=== PATIENT | female | born 1995 | race Caucasian/White ===

== ENCOUNTER 2017-10-25 16:00 | Emergency (ER) | payer BC, SELFPAY ==
[2017-10-25] MEDS ORDERED: ONDANSETRON 4 MG/2 ML VIAL ONE (17:10)
[2017-10-25] MEDS ORDERED: MORPHINE 4 MG/ML SYR ONE (17:10)
[2017-10-25] MEDS ORDERED: NA CHLORIDE 0.9% 1,000 ML ONE (17:10)
[2017-10-25 17:22] LABS: Absolute Lymphocytes (CBC) 0.8 K/uL (0.7-4.9); Absolute Monocytes 0.7 K/uL (0.1-1.3); Absolute Neutrophil 12.6 K/uL (1.8-8.0); Basophils % 0.2 % (0-1.3); Hematocrit 41.8 % (36.0-45.0); Lymphocytes % 5.6 % (15.3-44.8); MCH 28.7 pg (27.0-35.0); MPV 9.3 fL (7.6-11.3); Monocytes % 5.2 % (3.3-12.3); RBC Red Blood Cell Count 4.86 M/uL (3.86-4.86)
[2017-10-25 17:32] LABS: Potassium 3.6 mEq/L (3.6-5.0)
[2017-10-25 17:39] LABS: Albumin 4.6 g/dL (3.2-5.5); Bilirubin Direct 0.2 mg/dL (0-0.2); Protein, Total 8.2 g/dL (6.0-8.3)
--- NOTE | 2017-10-25 17:46 | RAD REPORT ---
EXAM DESCRIPTION: US - Abdomen Exam Limited - 10/25/2017 5:39 pm CLINICAL HISTORY: Abdominal pain. COMPARISON: None. FINDINGS: The gallbladder demonstrates no gallstones. No pericholecystic fluid or gallbladder wall t hickening. The common bile duct is normal measuring 3 mm. The liver demonstrates no findings of intrahepatic biliary dilatation. IMPRESSION: Unremarkable examination.
[2017-10-25 17:57] LABS: Blood Morphology Comment NOT SEEN (NOT SEEN); Platelet Estimate ADEQ; Urine White Blood Cell Casts OK
[2017-10-25 18:08] LABS: Urine Bacteria NONE SEEN /HPF (<20); Urine RBC NONE SEEN /HPF (NONE SEEN)
[2017-10-25 18:09] LABS: Urine Culture Reflex Order NOT NEEDED
[2017-10-25 18:17] LABS: Urine Blood NEGATIVE (NEG); Urine Glucose NEGATIVE (NEG); Urine Protein NEGATIVE (NEG); Urine Specific Gravity 1.015 (1.005-1.030); Urine pH 8.5 (5.0-7.0)
--- NOTE | 2017-10-25 20:04 | RAD REPORT ---
EXAM DESCRIPTION: CTAbdomen Pelvis W Contrast - 10/25/2017 7:53 pm CLINICAL HISTORY: Abdominal pain. COMPARISON: 05/05/2017 TECHNIQUE: Biphasic CT imaging of the abdomen and pelvis was performed with 100 ml non-ionic IV cont rast. All CT scans are performed using dose optimization technique as appropriate and may include automated exposure control or mA/KV adjustment according to patient size. FINDINGS: The lung bases are clear. The liver, spleen, pancreas, adrenal glands and kidneys are within normal limits. No bowel obstruction, free air, free fluid or abscess. The appendix is not identified as a discrete structure, however, no secondary findings of appendicitis are identified. No evidence of significan t lymphadenopathy. Mild pelvic free fluid is present. Recent cyst rupture on the right is suspected. 4 cm left ovarian c yst is noted. Moderate fecal retention in the colon seen. IMPRESSION: Mild pelvic free fluid is seen with evidence of recent cyst rupture on the right. A 4 cm left ovarian cyst is noted. The appendix is not identified as a discrete structure, however, no secondary findings of appendicit is are identified.
[2017-10-25] MEDS ORDERED: KETOROLAC 30 MG/ML INJ ONE (21:05)
--- NOTE | 2017-10-25 21:05 | ER ---
Nurse's Notes [facility] Name: Leeanna Nunes Age: 21 yrs Sex: Female : 1995 Arrival Date: 10/25/2017 Time: 16:04 Bed 17 Private MD: Diagnosis: Other ovarian cysts-ruptured Presentation: 10/25 16:13 Presenting complaint: Patient states: Epigastric pain with nausea that started last aj night after eating Mac and cheese last night. Transition of care: patient was not received from another setting of care. Onset of symptoms was October 25, 2017. Initial Sepsis Screen: Does the patient meet any 2 criteria? No. Patient's initial sepsis screen is negative. Does the patient have a suspected source of infection? No. Patient's initial sepsis screen is negative. Care prior to arrival: None. 16:13 Method Of Arrival: Ambulatory 16:13 Acuity: CHRISTINE 3 aj Triage Assessment: 16:15 General: Appears in no apparent distress. comfortable, Behavior is calm, cooperative, aj appropriate for age. Pain: Complains of pain in epigastric area. Neuro: Level of Consciousness is awake, alert, obeys commands, Oriented to person, place, time, situation, Appropriate for age. Respiratory: Airway is patent Respiratory effort is even, unlabored, Respiratory pattern is regular, symmetrical. GI: Abdomen is flat, non-distended. GI: Reports diarrhea, nausea. Derm: Skin is intact, is healthy with good turgor, Skin is pink, warm \T\ dry. normal. 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 - Social history:: Smoking status: Patient/guardian denies using tobacco. Screenin:50 Abuse screen: Denies threats or abuse. Nutritional screening: No deficits noted. rb1 Tuberculosis screening: No symptoms or risk factors identified. Fall Risk None identified. Assessment: 16:50 General: Appears uncomfortable, slender, Behavior is calm, cooperative, Reports fever rb1 for. Pain: Complains of pain in abdomen Pain currently is 7 out of 10 on a pain scale. Pain began today around 1300. Neuro: Level of Consciousness is awake, alert, obeys commands, Oriented to person, place, time, situation. Cardiovascular: Capillary refill < 3 seconds is brisk in bilateral fingers. Respiratory: Airway is patent Respiratory effort is even, unlabored, Respiratory pattern is regular, symmetrical. GI: Bowel sounds present X 4 quads. Abd is soft Abdomen is tender to palpation X 4 quads. Reports diarrhea, nausea. : Reports pain with urination. Derm: Skin is pink, warm \T\ dry. Musculoskeletal: Range of motion: intact in all extremities. 17:20 Reassessment: Patient appears in no apparent distress at this time. Patient and/or rb1 family updated on plan of care and expected duration. Pain level reassessed. Patient is alert, oriented x 3, equal unlabored respirations, skin warm/dry/pink. 18:11 Reassessment: Patient appears in no apparent distress at this time. No changes from rb1 previously documented assessment. 18:23 Reassessment: Called CT to inform them that the pt. finished her contrast. rb1 19:46 Reassessment: Patient appears in no apparent distress at this time. Patient and/or aa1 family updated on plan of care and expected duration. Pain level reassessed. Patient is alert, oriented x 3, equal unlabored respirations, skin warm/dry/pink. Pt taken to CT. 21:26 Reassessment: Patient appears in no apparent distress at this time. Patient is alert, aa1 oriented x 3, equal unlabored respirations, skin warm/dry/pink. Discussed d/c \T\ f/u instructions with pt; denies questions or concerns at this time Patient states feeling better. Vital Signs: 16:15 BP 128 / 73; Pulse 88; Resp 20; Temp 100.4; Pulse Ox 100% on R/A; Weight 49.9 kg; aj Height 5 ft. 0 in. (152.40 cm); Pain 7/10; 17:00 Temp 98.1(O); rb1 17:16 BP 116 / 76; Pulse 87; Resp 18; Pulse Ox 100% ; rb1 18:00 BP 108 / 60; Pulse 72; Resp 16; Pulse Ox 100% on R/A; rb1 20:05 BP 118 / 66; Pulse 73; Resp 18; Pulse Ox 100% on R/A; Pain 7/10; mg2 21:26 BP 115 / 60; Pulse 69; Resp 16; Temp 98.2; Pulse Ox 100% on R/A; Pain 2/10; aa1 16:15 Body Mass Index 21.48 (49.90 kg, 152.40 cm) ED Course: 16:04 Patient arrived in ED. sb2 16:14 Triage completed. aj 16:15 Arm band placed on right wrist. Patient placed in waiting room. aj 16:50 Gino Salazar NP is PHCP. pm1 16:50 Amandeep Diaz MD is Attending Physician. pm1 16:50 Patient has correct armband on for positive identification. Bed in low position. Call rb1 light in reach. Side rails up X 1. Pulse ox on. NIBP on. 16:59 Mary Ojeda, RN is Primary Nurse. rb1 17:14 Initial lab(s) drawn, by me, sent to lab. Urine collected: clean catch specimen, clear. dh3 Inserted saline lock: 20 gauge in right antecubital area, using aseptic technique. Blood collected. 17:25 Ultrasound completed. Patient tolerated well. ap2 17:40 US Abdomen Limited In Process Unspecified. EDMS 18:58 Report given to NAHUM Jain. rb1 19:50 CT completed. Patient moved to CT via wheelchair. Patient moved back from CT. cw1 19:53 CT Abd/Pelvis - W/Contrast In Process Unspecified. EDMS 21:26 No provider procedures requiring assistance completed. IV discontinued, intact, aa1 bleeding controlled, No redness/swelling at site. Pressure dressing applied. Administered Medications: 17:07 Drug: NS 0.9% 1000 ml Route: IV; Rate: 1000 ml; Site: right antecubital; rb1 20:11 Follow up: Response: No adverse reaction; IV Status: Completed infusion mg2 17:07 Drug: morphine 4 mg {Note: pt. asked me to stop administration after 1 mg being was rb1 administrated. provider notified.} Route: IVP; Site: right antecubital; 20:10 Follow up: Response: No adverse reaction mg2 17:07 Drug: Zofran 4 mg Route: IVP; Site: right antecubital; rb1 20:10 Follow up: Response: No adverse reaction; Nausea is decreased mg2 21:08 Drug: TORadol 30 mg Route: IVP; Site: right antecubital; mg2 21:26 Follow up: Response: No adverse reaction; Pain is decreased aa1 Outcome: 21:05 Discharge ordered by . pm1 21: Discharged to home ambulatory. aa1 21: Condition: good 21: Discharge instructions given to patient, Instructed on discharge instructions, follow up and referral plans. medication usage, Demonstrated understanding of instructions, follow-up care, medications, Prescriptions given X 3. 21:28 Patient left the ED. aa1 Signatures: Dispatcher [employer] EDMS Susy Coulter RN RN aa1 Anastacia Andrade RN RN Miara Heredia cw1 Mary Ojeda RN RN rb1 Gino Salazar NP WASTEWATER PROCESS ENGINEER pm1 Jamia Ramírez 3 Afia Baeza Sheri 2 Jonny Nelson RN RN mg2
--- NOTE | 2017-10-25 21:05 | EDPHYS ---
Physician Documentation [facility] Name: Leeanna Nunes Age: 21 yrs Sex: Female : 1995 Arrival Date: 10/25/2017 Time: 16:04 Bed 17 Private MD: ED Physician Amandeep Diaz HPI: 10/25 21:25 This 21 yrs old Female presents to ER via Ambulatory with complaints of pm1 Abdominal Pain, Abdominal Cramping. 21:25 The patient presents with abdominal pain that is diffuse. Onset: The symptoms/episode pm1 began/occurred yesterday, at 18:00. The symptoms do not radiate. Associated signs and symptoms: Pertinent positives: nausea, 1 episode diarrhea, Pertinent negatives: chest pain, dysuria, fever, headache, shortness of breath. The symptoms are described as crampy. Modifying factors: The symptoms are alleviated by positioning - sitting forward. the symptoms are aggravated by movement, touching the area. Severity of pain: in the emergency department the pain is actually worse. The patient has not experienced similar symptoms in the past. The patient has not recently seen a physician. 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 - Social history:: Smoking status: Patient/guardian denies using tobacco. ROS: 21:25 Constitutional: Negative for fever, chills, and weight loss, Eyes: Negative for injury, pm1 pain, redness, and discharge, ENT: Negative for injury, pain, and discharge, Neck: Negative for injury, pain, and swelling, Cardiovascular: Negative for chest pain, palpitations, and edema, Respiratory: Negative for shortness of breath, cough, wheezing, and pleuritic chest pain. 21:25 Back: Negative for injury and pain, : Negative for injury, bleeding, discharge, and swelling, MS/Extremity: Negative for injury and deformity, Skin: Negative for injury, rash, and discoloration, Neuro: Negative for headache, weakness, numbness, tingling, and seizure. 21:25 Abdomen/GI: Positive for abdominal pain, nausea, 1 episode of diarrhea, Negative for vomiting. Exam: 21:25 Constitutional: This is a well developed, well nourished patient who is awake, alert, pm1 and in no acute distress. Head/Face: Normocephalic, atraumatic. Eyes: Pupils equal round and reactive to light, extra-ocular motions intact. Lids and lashes normal. Conjunctiva and sclera are non-icteric and not injected. Cornea within normal limits. Periorbital areas with no swelling, redness, or edema. ENT: Nares patent. No nasal discharge, no septal abnormalities noted. Tympanic membranes are normal and external auditory canals are clear. Oropharynx with no redness, swelling, or masses, exudates, or evidence of obstruction, uvula midline. Mucous membranes moist. Neck: Trachea midline, no thyromegaly or masses palpated, and no cervical lymphadenopathy. Supple, full range of motion without nuchal rigidity, or vertebral point tenderness. No Meningismus. Chest/axilla: Normal chest wall appearance and motion. Nontender with no deformity. No lesions are appreciated. Cardiovascular: Regular rate and rhythm with a normal S1 and S2. No gallops, murmurs, or rubs. No pulse deficits. Respiratory: Lungs have equal breath sounds bilaterally, clear to auscultation and percussion. No rales, rhonchi or wheezes noted. No increased work of breathing, no retractions or nasal flaring. 21:25 Back: No spinal tenderness. No costovertebral tenderness. Full range of motion. Skin: Warm, dry with normal turgor. Normal color with no rashes, no lesions, and no evidence of cellulitis. MS/ Extremity: Pulses equal, no cyanosis. Neurovascular intact. Full, normal range of motion. 21:25 Abdomen/GI: Inspection: abdomen appears normal, Bowel sounds: normal, Palpation: soft, mild abdominal tenderness, in the epigastric area, right lower quadrant and left lower quadrant, mass, is not appreciated. 21:25 Neuro: Orientation: is normal, Motor: moves all fours, Gait: is steady, at a normal pace, without difficulty. Vital Signs: 16:15 BP 128 / 73; Pulse 88; Resp 20; Temp 100.4; Pulse Ox 100% on R/A; Weight 49.9 kg; aj Height 5 ft. 0 in. (152.40 cm); Pain 7/10; 17:00 Temp 98.1(O); rb1 17:16 BP 116 / 76; Pulse 87; Resp 18; Pulse Ox 100% ; rb1 18:00 BP 108 / 60; Pulse 72; Resp 16; Pulse Ox 100% on R/A; rb1 20:05 BP 118 / 66; Pulse 73; Resp 18; Pulse Ox 100% on R/A; Pain 7/10; mg2 21:26 BP 115 / 60; Pulse 69; Resp 16; Temp 98.2; Pulse Ox 100% on R/A; Pain 2/10; aa1 16:15 Body Mass Index 21.48 (49.90 kg, 152.40 cm) aj MDM: 16:51 Patient medically screened. pm1 21:02 Differential diagnosis: appendicitis, cholecystitis, Cholelithiasis, gastritis, pm1 pancreatitis, urinary tract infection. 21:02 Data reviewed: vital signs. Data interpreted: Pulse oximetry: on room air is 100 %. pm1 Interpretation: normal. Counseling: I had a detailed discussion with the patient and/or guardian regarding: the historical points, exam findings, and any diagnostic results supporting the discharge/admit diagnosis, lab results, radiology results, the need for outpatient follow up, to return to the emergency department if symptoms worsen or persist or if there are any questions or concerns that arise at home. 10/25 16:58 Order name: Amylase, Serum; Complete Time: 17:48 pm1 10/25 16:58 Order name: Basic Metabolic Panel; Complete Time: 17:48 pm1 10/25 16:58 Order name: CBC with Diff; Complete Time: 18:07 pm1 10/25 16:58 Order name: Creatinine for Radiology; Complete Time: 17:32 pm1 10/25 16:58 Order name: Hepatic Function; Complete Time: 17:48 pm1 10/25 16:58 Order name: Lipase; Complete Time: 17:48 pm1 10/25 16:58 Order name: Urine Microscopic Only; Complete Time: 18:14 pm1 10/25 16:58 Order name: US Abdomen Limited; Complete Time: 17:48 pm1 10/25 17:24 Order name: CBC Smear Scan; Complete Time: 18:07 EDMS 10/25 17:24 Order name: Urine Dipstick--Ancillary (enter results); Complete Time: 18:19 eb 10/25 17:24 Order name: Urine --Ancillary (enter results); Complete Time: 18:19 eb 10/25 17:52 Order name: CT Abd/Pelvis - W/Contrast; Complete Time: 20:24 pm1 10/25 16:58 Order name: Urine Test (obtain specimen); Complete Time: 17:25 pm1 10/25 16:58 Order name: IV Saline Lock; Complete Time: 17:25 pm1 10/25 16:58 Order name: Labs collected and sent; Complete Time: 17:25 pm1 10/25 16:58 Order name: Urine Dipstick-Ancillary (obtain specimen); Complete Time: 17:25 pm1 Administered Medications: 17:07 Drug: NS 0.9% 1000 ml Route: IV; Rate: 1000 ml; Site: right antecubital; rb1 20:11 Follow up: Response: No adverse reaction; IV Status: Completed infusion mg2 17:07 Drug: morphine 4 mg {Note: pt. asked me to stop administration after 1 mg being was rb1 administrated. provider notified.} Route: IVP; Site: right antecubital; 20:10 Follow up: Response: No adverse reaction mg2 17:07 Drug: Zofran 4 mg Route: IVP; Site: right antecubital; rb1 20:10 Follow up: Response: No adverse reaction; Nausea is decreased mg2 21:08 Drug: TORadol 30 mg Route: IVP; Site: right antecubital; mg2 21:26 Follow up: Response: No adverse reaction; Pain is decreased aa1 Disposition: 10/26 07:29 Co-signature as Attending Physician, Amandeep Diaz MD. rn Disposition: 10/25/17 21:05 Discharged to Home. Impression: Other ovarian cysts - ruptured. - Condition is Stable. - Discharge Instructions: Ovarian Cyst. - Prescriptions for Naprosyn 500 mg Oral Tablet - take 1 tablet by ORAL route 2 times per day take with food; 30 tablet. Tylenol- Codeine #3 300-30 mg Oral Tablet - take 2 tablets by ORAL route every 6 hours As needed; 20 tablet. Zofran 4 mg Oral Tablet - take 1 tablet by ORAL route every 12 hours As needed; 20 tablet. - Medication Reconciliation Form, Thank You Letter, Prescription Opioid Use form. - Follow up: Emergency Department; When: As needed; Reason: Worsening of condition. Follow up: Private Physician; When: 2 - 3 days; Reason: Recheck today's complaints, Continuance of care, Re-evaluation by your physician. - Problem is new. - Symptoms have improved. Signatures: Dispatcher [employer] EDSusy Palafox RN RN aa1 Anastacia Andrade RN RN aj Nieto, Roman, MD MD rn Barber, Rebecca RN Gino Espino LOG BUYER LOG BUYER pm1 Jonny Nelson RN RN mg2 Corrections: (The following items were deleted from the chart) 10/25 21:28 21:05 10/25/2017 21:05 Discharged to Home. Impression: Other ovarian cysts - ruptured. aa1 Condition is Stable. Forms are Medication Reconciliation Form, Thank You Letter, Antibiotic Education, Prescription Opioid Use. Follow up: Emergency Department; When: As needed; Reason: Worsening of condition. Follow up: Private Physician; When: 2 - 3 days; Reason: Recheck today's complaints, Continuance of care, Re-evaluation by your physician. Problem is new. Symptoms have improved. pm1
[2017-10-25 21:36] VITALS: O2SAT 100
[2017-10-25 21:42] VITALS: BP 115/60; TEMP 98.2
== END 2017-10-25 21:28 | disposition home or self-care (01) ==
LOC: ER 16:00
DX: N83.299 Other ovarian cyst, unspecified side (principal); E07.9 Disorder of thyroid, unspecified; Z88.3 Allergy status to other anti-infective agents
CPT/HCPCS: 36415; 74177; 76705; 80048; 80076; 81003; 81015; 81025; 82150; 83690; 85025; 96361; 96374; 96375; 99284; J2405; J7030; Q9967

== ENCOUNTER 2022-02-14 12:17 | Emergency (ER) | payer BC, OTHER ==
--- OUTSIDE RECORDS SUMMARY | 2022-02-14 12:19 | XMS REPORT | Continuity of Care Document ---
:1995 Author Organization [facility] t Address [address] [place]. [address] [place] [id number] Care Team Providers Name Role Phone Unavailable Unavailable Unavailable Problems This patient has no known problems. Allergies, Adverse Reactions, Alerts This patient has no known allergies or adverse reactions. Medications This patient has no known medications. Procedures This patient has no known procedures. Encounters Start End Encounter Admission Attending Care Care Encounter Source Date/Time Date/Time Type Type Clinicians Facility Department ID 2021-08-[address] [facility] [id number] Common 13:26:03 [facility] Results This patient has no known results.
[2022-02-14] MEDS ORDERED: ONDANSETRON 4 MG/2 ML VIAL ONE ×2 (12:35→15:27)
[2022-02-14] MEDS ORDERED: MORPHINE 4 MG/ML SYR ONE ×2 (12:35→13:02)
[2022-02-14] MEDS ORDERED: FAMOTIDINE 20 MG/2 ML VIAL IV ONE (12:40)
[2022-02-14] MEDS ORDERED: NA CHLORIDE 0.9% 1,000 ML ONE (12:40)
[2022-02-14 12:45] LABS: Absolute Lymphocytes (CBC) 1.3 K/uL (0.7-4.9); Hematocrit 42.2 % (36.0-45.0); Lymphocytes % 21.3 % (15.3-44.8); MCV 85.6 fL (80-100); MPV 8.1 fL (7.6-11.3); RBC Red Blood Cell Count 4.93 M/uL (3.86-4.86)
[2022-02-14 13:03] LABS: Albumin 4.6 g/dL (3.4-5.0); Bilirubin Total 0.4 mg/dL (0.2-1.0); Potassium 3.2 mmol/L (3.5-5.1); Protein, Total 8.5 g/dL (6.4-8.2)
[2022-02-14 13:03] LABS: Urine Blood Trace-intact (Negative); Urine Glucose Negative (Negative); Urine Protein Trace (Negative); Urine pH 8.5 (5.0-7.0)
[2022-02-14 13:25] LABS: Urine Bacteria <20 /HPF (<20)
--- NOTE | 2022-02-14 13:37 | RAD REPORT ---
EXAM DESCRIPTION: CT - Stone Protocol - 02/14/2022 1:24 pm CLINICAL HISTORY: Flank pain, kidney stone suspected COMPARISON: Abdomen Pelvis W Contrast dated 10/25/2017; Abdomen Pelvis W Contrast dated 05/05/2017 TECHNIQUE: Axial 3 mm thick images were obtained without oral or IV contrast. The [id number] span s the entirety of the system including uppermost abdomen and lung bases. All CT scans are performed using dose optimization technique as appropriate and may include automated exposure control or mA/KV adjustment according to patient size. FINDINGS: Mild to moderate dilatation of the left collecting system is present down to the distal ur eter where there is a 5 millimeter stone near the UVJ. This left pelvic floor calcification is new fr om prior imaging. Right-sided calcification is a phlebolith matching prior imaging. No right-sided hy dronephrosis. A 3 millimeter nonobstructing calyx calcifications seen lower pole right kidney. No wilfredo picious renal masses. Isodense masses and pyelonephritis are not excluded on a stone protocol CT scan . No significant adrenal finding. Urinary bladder is mostly contracted. No bladder calculus or gross abnormality seen. Imaged portions of the liver, spleen and pancreas show no suspicious findings on non-contrast imaging . No gallbladder or biliary tree abnormality identified. No dilated bowel loop or bowel wall thickening. Moderately large stool volume fills the colon. Hyperd ense material in the colon is probably bismuth containing medication. No convincing evidence for appe ndicitis. No uterine abnormality suspected. Ovaries are poorly defined abutting on opacified small bowel loops. In the left posterior head adnexa and cul-de-sac there is a 3.8 centimeter round low-density mass (3 3 HU). This has slightly hyperdense rim. Exophytic left ovarian cyst is most likely. The patient has a history of multiple prominently sized ovarian cysts. No fat component. This can be monitored on sub sequent imaging for involution. Free fluid in the cul de sac is within physiologic limits. No clearly involuting or collapsed cyst ev ident on this noncontrast study. No free air or pneumatosis. No significant bony abnormality. IMPRESSION: Mild moderate left-sided hydronephrosis secondary to 5 mm stone near the left UVJ. Corre lation is needed with left renal colic symptoms. Isodense masses and pyelonephritis are not excluded on stone protocol technique. A 3.7 centimeter low-density posterior left adnexal rounded mass is most likely mildly complex left o varian cyst. Free fluid in the cul de sac is within physiologic limits. Follow-up CT or endovaginal s onography can be used for surveillance.
[2022-02-14] MEDS ORDERED: KETOROLAC 30 MG/ML INJ ONE (14:00)
[2022-02-14] MEDS ORDERED: POTASSIUM 25 MEQ EFFERV TAB ONE (14:19)
[2022-02-14] MEDS ORDERED: TAMSULOSIN 0.4 MG SR CAP ONE (14:19)
[2022-02-14] MEDS ORDERED: MAGNESIUM SULFATE 1 gm IVPB 1 GM/100 ML BAG IV ONE (14:20)
--- NOTE | 2022-02-14 14:53 | ER ---
Nurse's Notes [facility] Name: Leeanna Nunes Age: 26 yrs Sex: Female : 1995 Arrival Date: 02/14/2022 Time: 12:19 Bed 6 Private MD: Diagnosis: Calculus of kidney with calculus of ureter-left;Nausea with vomiting, unspecified;Unspecified ovarian cyst, left side Presentation: 02/14 12:10 Chief complaint: Patient states: Left lower back and abdominal pain. eh3 12:10 Coronavirus screen: Vaccine status: Patient reports being unvaccinated. Ebola Screen: eh3 No symptoms or risks identified at this time. Initial Sepsis Screen: Does the patient meet any 2 criteria? No. Patient's initial sepsis screen is negative. Does the patient have a suspected source of infection? No. Patient's initial sepsis screen is negative. Risk Assessment: Do you want to hurt yourself or someone else? Patient reports no desire to harm self or others. Onset of symptoms was February 14, 2022 at 11:30. 12:10 Method Of Arrival: Ambulatory 3 12:10 Acuity: CHRISTINE 3 eh3 Triage Assessment: 12:10 General: Appears distressed, uncomfortable, well groomed, Behavior is cooperative, eh3 anxious, crying, restless. Pain: Complains of pain in left low back Pain radiates to left lower quadrant Pain currently is 10 out of 10 on a pain scale. Quality of pain is described as pressure, stabbing, throbbing, Pain began suddenly, 30 min ago. Is continuous, Alleviated by nothing. Aggravated by increased activity, Noted to be crying, guarding, moaning, resistant to movement, Also complains of nausea. Neuro: Level of Consciousness is awake, alert, obeys commands, Oriented to person, place, time, situation. Cardiovascular: Capillary refill < 3 seconds Patient's skin is warm and dry. Respiratory: Airway is patent Respiratory effort is even, labored, pursed lip. GI: Abdomen is flat, non-distended, Last BM was February 14, 2022. Bowel sounds present X 4 quads. Abdomen is tender to palpation in left lower quadrant Guarding noted X 4 quads. Reports lower abdominal pain, nausea, normal bowel habits. : No signs and/or symptoms were reported regarding the genitourinary system. : Urine is cloudy. Derm: No signs and/or symptoms reported regarding the dermatologic system. Musculoskeletal: No signs and/or symptoms reported regarding the musculoskeletal system. 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 - Social history:: Smoking status: Patient denies any tobacco usage or history of. Patient/guardian denies using alcohol, street drugs. Screenin:10 Abuse screen: Denies threats or abuse. Denies injuries from another. Nutritional 3 screening: No deficits noted. Tuberculosis screening: No symptoms or risk factors identified. Fall Risk IV access (20 points). Gait- Impaired (20 pts.). Total Stewart Fall Scale indicates Low Risk Score (25-44 pts). Fall prevention measures have been instituted. Side Rails Up X 2 Placed close to Nursing Station Frequent Obs/Assesments occuring Family Present and informed to notify staff if they need to leave bedside As available Patient and Family Educated on Fall Prevention Program and strategies. Assessment: 12:30 Reassessment: See triage assessment. 3 12:45 Reassessment: Pt complains pain is increased, requests more pain medication. Provider 3 notified. Vital Signs: 12:18 BP 125 / 72; Pulse 85; Resp 18; Pulse Ox 100% on R/A; Pain 10/10; eh3 13:00 BP 123 / 78; Pulse 70; Resp 18; Pulse Ox 96% on R/A; eh3 14:00 BP 132 / 84; Pulse 49; Resp 16; Pulse Ox 98% on R/A; eh3 15:00 BP 123 / 71; Pulse 64; Resp 15; Pulse Ox 100% on R/A; eh3 15:53 BP 126 / 74; Pulse 65; Resp 18; Temp 97.9(TE); Pulse Ox 100% on R/A; Weight 54.88 kg; ld1 Height 5 ft. 1 in. (154.94 cm); Pain 2/10; 15:53 Body Mass Index 22.86 (54.88 kg, 154.94 cm) ld1 ED Course: 12:10 Arm band placed on right wrist. Patient has correct armband on for positive eh3 identification. Placed in gown. Bed in low position. Call light in reach. Side rails up X2. Adult w/ patient. Client placed on continuous cardiac and pulse oximetry monitoring. NIBP monitoring applied. Door closed. Noise minimized. Lights dimmed. Warm blanket given. 12:19 Patient arrived in ED. rg4 12:20 Inserted saline lock: 20 gauge in right antecubital area, using aseptic technique. eh3 Blood collected. 12:21 Bernardino Blevins PA is PHCP. cp 12:21 Vu Narvaez MD is Attending Physician. cp 12:43 Carmen Hickey RN is Primary Nurse. eh3 12:45 Triage completed. eh3 13:09 Urine --Ancillary (enter results) Sent. eh3 13:09 Urine Microscopic Only Sent. eh3 13:26 CT Stone Protocol In Process Unspecified. EDMS 14:51 Shayne Platt MD is Referral Physician. cp 15:52 No provider procedures requiring assistance completed. IV discontinued, intact, ld1 bleeding controlled, No redness/swelling at site. Administered Medications: 12:32 Drug: Pepcid (famotidine) 20 mg Route: IVP; Site: right antecubital; ld1 13:56 Follow up: Response: No adverse reaction eh3 12:32 Drug: Zofran (Ondansetron) 4 mg Route: IVP; Site: right antecubital; ld1 13:56 Follow up: Response: No adverse reaction; Nausea is decreased eh3 12:32 Drug: morphine 4 mg Route: IVP; Infused Over: 4 mins; Site: right antecubital; ld1 13:55 Follow up: Response: No adverse reaction; Pain is decreased eh3 12:33 Drug: NS 0.9% 1000 ml Route: IV; Rate: 1 bolus; Site: right antecubital; ld1 15:30 Follow up: IV Status: Completed infusion; IV Intake: 1000ml eh3 12:58 Drug: morphine 4 mg Route: IVP; Infused Over: 4 mins; Site: right antecubital; eh3 13:55 Follow up: Response: No adverse reaction; Pain is decreased eh3 13:22 Drug: Zofran (Ondansetron) 4 mg Route: IVP; Site: right antecubital; eh3 15:30 Follow up: Response: No adverse reaction eh3 13:55 Drug: Ketorolac 15 mg Route: IVP; Site: right antecubital; eh3 15:29 Follow up: Response: Marked relief of symptoms eh3 14:23 Drug: Flomax (tamsulosin) 0.4 mg Route: PO; eh3 15:29 Follow up: Response: No adverse reaction eh3 14:23 Drug: Magnesium Sulfate 1 grams Route: IVPB; Infused Over: 1 hrs; Site: right eh3 antecubital; 15:30 Follow up: IV Status: Completed infusion; IV Intake: 100ml eh3 14:23 Drug: Potassium Effervescent Tablet 50 mEq Route: PO; eh3 15:30 Follow up: Response: Vomiting increased eh3 Medication: 15:00 VIS not applicable for this client. eh3 Intake: 15:30 IV: 100ml; Total: 100ml. eh3 15:30 IV: 1000ml; Total: 1100ml. eh3 Outcome: 14:52 Discharge ordered by . cp 15:52 Admitted to ld1 15:52 Discharged to home ambulatory, with family. 15:52 Condition: stable 15:52 Discharge instructions given to patient, family, Instructed on discharge instructions, follow up and referral plans. medication usage, Demonstrated understanding of instructions, follow-up care, medications, Prescriptions given X 4. 15:53 Patient left the ED. ld1 Signatures: Dispatcher [employer] EDMS Bernardino Blevins PA PA cp Garcia, Rubi rg4 Cindy Hair RN RN ld1 Carmen Hickey RN RN eh3 Corrections: (The following items were deleted from the chart) 13:16 13:10 General: Appears distressed, uncomfortable, well groomed, Behavior is eh3 cooperative, anxious, crying, restless, eh3 13:16 13:10 Pain: Complains of pain in left low back Pain radiates to left lower quadrant eh3 Pain currently is 10 out of 10 on a pain scale. Quality of pain is described as pressure, stabbing, throbbing, Pain began suddenly, 30 min ago. Is continuous, Alleviated by nothing. Aggravated by increased activity, Noted to be crying, guarding, moaning, resistant to movement, Also complains of nausea, [facility] 13:16 13:10 Neuro: Level of Consciousness is awake, alert, obeys commands, Oriented to [facility] person, place, time, situation, [facility] 13:16 13:10 Cardiovascular: Capillary refill < 3 seconds Patient's skin is warm and dry. [place] [id number] 13:16 13:10 Respiratory: Airway is patent Respiratory effort is even, labored, pursed lip, [facility] 13:16 13:10 GI: Abdomen is flat, non-distended, Last BM was February 14, 2022. Bowel sounds [facility] present X 4 quads. Abdomen is tender to palpation in left lower quadrant Guarding noted X 4 quads. Reports lower abdominal pain, nausea, normal bowel habits, [facility] 13:16 13:10 : Urine is cloudy, [place] [id number] :16 13:10 : No signs and/or symptoms were reported regarding the genitourinary system. [facility] 13:16 13:10 Derm: No signs and/or symptoms reported regarding the dermatologic system. [place] [id number] 13:16 13:10 Musculoskeletal: No signs and/or symptoms reported regarding the musculoskeletal [facility]. [facility] 14:05 13:16 Reassessment: See triage assessment [place] [id number] 14:07 13:16 Abuse screen: Denies threats or abuse. Denies injuries from another. [place] [id number] 14:07 13:16 Nutritional screening: No deficits noted. [place] [id number] 14:07 13:16 Tuberculosis screening: No symptoms or risk factors identified. [place] [id number] 14:07 13:16 Fall Risk IV access (20 points). Gait- Impaired (20 pts.). Total Stewart Fall Scale 3 indicates Low Risk Score (25-44 pts). Fall prevention measures have been instituted. Side Rails Up X 2 Placed close to Nursing Station Frequent Obs/Assesments occuring Family Present and informed to notify staff if they need to leave bedside As available Patient and Family Educated on Fall Prevention Program and strategies. 3 15:32 13:59 BP 123 / 78; Pulse 70bpm; Resp 18bpm; Pulse Ox 96% RA; [place] [id number] 15:34 13:10 Arm band placed on right wrist. [place] [id number] 15:34 13:16 Patient has correct armband on for positive identification. Placed in gown. Bed 3 in low position. Call light in reach. Side rails up X2. Adult w/ patient. [facility] 13:16 Client placed on continuous cardiac and pulse oximetry monitoring. NIBP [facility] monitoring applied. [facility] 13:16 Door closed. Noise minimized. Lights dimmed. Warm blanket given. [facility]
--- NOTE | 2022-02-14 14:53 | EDPHYS ---
Physician Documentation [facility] Name: Leeanna Nunes Age: 26 yrs Sex: Female : 1995 Arrival Date: 02/14/2022 Time: 12:19 Bed 6 Private MD: ED Physician Vu Narvaez HPI: 02/14 12:30 This 26 yrs old Female presents to ER via Ambulatory with complaints of Abdominal Pain, cp Low Back Pain. 12:30 The patient presents with abdominal pain in the left lower quadrant, left flank. cp 12:30 Onset: The symptoms/episode began/occurred suddenly, today. cp 12:30 The symptoms radiate to left back. Associated signs and symptoms: Pertinent positives: cp nausea and vomiting, Pertinent negatives: constipation, diarrhea, dysuria, fever. The symptoms are described as constant. Severity of pain: in the emergency department the pain is unchanged despite home interventions. 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 - Social history:: Smoking status: Patient denies any tobacco usage or history of. Patient/guardian denies using alcohol, street drugs. ROS: 12:35 Constitutional: Negative for body aches, chills, fever. cp 12:35 Eyes: Negative for injury, pain, redness, and discharge. cp 12:35 ENT: Negative for drainage from ear(s), ear pain, sore throat, difficulty swallowing, difficulty handling secretions. 12:35 Cardiovascular: Negative for chest pain, palpitations. 12:35 Respiratory: Negative for cough, shortness of breath, wheezing. 12:35 Abdomen/GI: Positive for abdominal pain, nausea and vomiting, of the posterior aspect of left lateral abdomen, anterior aspect of left lateral abdomen and left lower quadrant, Negative for diarrhea, constipation. 12:35 Back: Positive for flank pain, on the left. 12:35 : Negative for urinary symptoms, vaginal bleeding, vaginal discharge. 12:35 Neuro: Negative for altered mental status, headache, weakness. 12:35 All other systems are negative. Exam: 12:40 ECG was reviewed by the Attending Physician. cp 12:42 Constitutional: The patient appears alert, awake, non-toxic, well developed, well cp nourished, in obvious pain, uncomfortable. 12:42 Head/Face: Normocephalic, atraumatic. cp 12:42 Eyes: Periorbital structures: appear normal, Conjunctiva: normal, no exudate, no injection, Sclera: no appreciated abnormality, Lids and lashes: appear normal, bilaterally. 12:42 ENT: External ear(s): are unremarkable, Nose: is normal, Mouth: Lips: moist, Oral mucosa: pink and intact, moist, Posterior pharynx: is normal, airway is patent, no erythema, no exudate. 12:42 Chest/axilla: Inspection: normal, Palpation: is normal, no crepitus, no tenderness. 12:42 Cardiovascular: Rate: normal, Rhythm: regular. 12:42 Respiratory: the patient does not display signs of respiratory distress, Respirations: normal, no use of accessory muscles, no retractions, labored breathing, is not present, Breath sounds: are clear throughout, no decreased breath sounds, no stridor, no wheezing. 12:42 Abdomen/GI: Inspection: abdomen appears normal, Bowel sounds: active, all quadrants, Palpation: soft, in all quadrants, severe abdominal tenderness, in the posterior aspect of left lateral abdomen, anterior aspect of left lateral abdomen and left lower quadrant, rebound tenderness, is not appreciated, voluntary guarding, is elicited in the posterior aspect of left lateral abdomen, anterior aspect of left lateral abdomen and left lower quadrant. 12:42 Back: ROM is painful, with all movement. 12:42 Skin: no rash present. 12:42 Neuro: Orientation: to person, place \T\ time. Mentation: is normal, Motor: moves all fours, strength is normal, Sensation: is normal. Vital Signs: 12:18 BP 125 / 72; Pulse 85; Resp 18; Pulse Ox 100% on R/A; Pain 10/10; eh3 13:00 BP 123 / 78; Pulse 70; Resp 18; Pulse Ox 96% on R/A; eh3 14:00 BP 132 / 84; Pulse 49; Resp 16; Pulse Ox 98% on R/A; eh3 15:00 BP 123 / 71; Pulse 64; Resp 15; Pulse Ox 100% on R/A; eh3 15:53 BP 126 / 74; Pulse 65; Resp 18; Temp 97.9(TE); Pulse Ox 100% on R/A; Weight 54.88 kg; ld1 Height 5 ft. 1 in. (154.94 cm); Pain 2/10; 15:53 Body Mass Index 22.86 (54.88 kg, 154.94 cm) ld1 MDM: 12:25 Patient medically screened. cp 14:52 Data reviewed: vital signs, nurses notes, lab test result(s), radiologic studies, CT cp scan. 14:52 Differential diagnosis: non-specific abd pain, Ovarian Torsion, pancreatitis, cp Pyelonephritis, Ureterolithiasis, urinary tract infection. Counseling: I had a detailed discussion with the patient and/or guardian regarding: the historical points, exam findings, and any diagnostic results supporting the discharge/admit diagnosis, lab results, radiology results, to return to the emergency department if symptoms worsen or persist or if there are any questions or concerns that arise at home. Response to treatment: the patient's symptoms have markedly improved after treatment, and as a result, I will discharge patient. 02/14 12:26 Order name: CBC with Diff; Complete Time: 12:58 cp 02/14 12:26 Order name: CMP; Complete Time: 13:13 cp 02/14 13:14 Interpretation: Normal except: K 3.2; CO2 20; ANION GAP 15.2; GLUC 113; GFR 76; TP 8.5. cp 02/14 12:26 Order name: Lipase; Complete Time: 13:13 cp 02/14 12:26 Order name: Urine Microscopic Only; Complete Time: 13:41 cp 02/14 13:42 Interpretation: Normal except: URBC 5-10; ERIC Cx 1+. cp 02/14 13:03 Order name: Urine Dipstick-Ancillary; Complete Time: 13:13 EDMS 02/14 13:05 Order name: Urine --Ancillary (enter results); Complete Time: 13:23 eb 02/14 12:26 Order name: CT Stone Protocol; Complete Time: 13:41 cp 02/14 12:26 Order name: IV Saline Lock; Complete Time: 12:43 cp 02/14 12:26 Order name: Labs collected and sent; Complete Time: 12:43 cp 02/14 12:26 Order name: Urine Dipstick-Ancillary (obtain specimen); Complete Time: 13:10 cp 02/14 12:26 Order name: Urine Test (obtain specimen); Complete Time: 13:10 cp EC:40 Rate is 71 beats/min. Rhythm is regular. WI interval is normal. QRS interval is normal. cp QT interval is normal. T waves are Inverted in leads aVL, aVR. Interpreted by me. Reviewed by me. Administered Medications: 12:32 Drug: Pepcid (famotidine) 20 mg Route: IVP; Site: right antecubital; ld1 13:56 Follow up: Response: No adverse reaction eh3 12:32 Drug: Zofran (Ondansetron) 4 mg Route: IVP; Site: right antecubital; ld1 13:56 Follow up: Response: No adverse reaction; Nausea is decreased eh3 12:32 Drug: morphine 4 mg Route: IVP; Infused Over: 4 mins; Site: right antecubital; ld1 13:55 Follow up: Response: No adverse reaction; Pain is decreased eh3 12:33 Drug: NS 0.9% 1000 ml Route: IV; Rate: 1 bolus; Site: right antecubital; ld1 15:30 Follow up: IV Status: Completed infusion; IV Intake: 1000ml eh3 12:58 Drug: morphine 4 mg Route: IVP; Infused Over: 4 mins; Site: right antecubital; eh3 13:55 Follow up: Response: No adverse reaction; Pain is decreased eh3 13:22 Drug: Zofran (Ondansetron) 4 mg Route: IVP; Site: right antecubital; eh3 15:30 Follow up: Response: No adverse reaction eh3 13:55 Drug: Ketorolac 15 mg Route: IVP; Site: right antecubital; eh3 15:29 Follow up: Response: Marked relief of symptoms eh3 14:23 Drug: Flomax (tamsulosin) 0.4 mg Route: PO; eh3 15:29 Follow up: Response: No adverse reaction eh3 14:23 Drug: Magnesium Sulfate 1 grams Route: IVPB; Infused Over: 1 hrs; Site: right eh3 antecubital; 15:30 Follow up: IV Status: Completed infusion; IV Intake: 100ml eh3 14:23 Drug: Potassium Effervescent Tablet 50 mEq Route: PO; eh3 15:30 Follow up: Response: Vomiting increased eh3 Disposition Summary: 02/14/22 14:52 Discharge Ordered Location: Home cp Problem: new cp Symptoms: have improved cp Condition: Stable cp Diagnosis - Calculus of kidney with calculus of ureter - left cp - Nausea with vomiting, unspecified cp - Unspecified ovarian cyst, left side cp Followup: cp - With: Shayne Platt MD - When: 2 - 3 days - Reason: pain continues Discharge Instructions: - Discharge Summary Sheet cp - Kidney Stones cp - Nausea and Vomiting, Adult cp - Ovarian Cyst cp Forms: - Medication Reconciliation Form cp - Thank You Letter cp - Antibiotic Education cp - Prescription Opioid Use cp Prescriptions: - Flomax 0.4 mg Oral capsule - take 1 capsule by ORAL route once daily 1/2 hour following the same meal each cp day; 7 capsule; Refills: 0, Product Selection Permitted - Ibuprofen 800 mg Oral Tablet - take 1 tablet by ORAL route every 8 hours As needed take with food; 30 tablet; cp Refills: 0, Product Selection Permitted - Zofran 4 mg Oral Tablet - take 1 tablet by ORAL route every 12 hours As needed; 20 tablet; Refills: 0, cp Product Selection Permitted - Tylenol-Codeine #3 300 mg-30 mg Oral - take 2 tablet by ORAL route every 6-8 hours; 16 tablet; Refills: 0, Product cp Selection Permitted Signatures: Dispatcher [employer] EDBernardino King PA PA cp Cindy Hair RN RN ld1 Carmen Hickey RN RN eh3
[2022-02-14 16:57] VITALS: O2SAT 100
[2022-02-14 16:59] VITALS: BP 126/74; TEMP 97.9
== END 2022-02-14 15:53 | disposition home or self-care (01) ==
LOC: ER 12:17
DX: N20.2 Calculus of kidney with calculus of ureter (principal); R11.2 Nausea with vomiting, unspecified; N83.202 Unspecified ovarian cyst, left side; Z88.3 Allergy status to other anti-infective agents
CPT/HCPCS: 96365; 96361; 85025; 36415; 81025; 83690; 80053; 76377; 74176; 96375; 99285; J3475; J7030; J2405 ×2; 81003; 81015